=== PATIENT | female | born 1935 | race Caucasian/White ===

== ENCOUNTER 2018-03-09 09:31 | Inpatient (IN) | payer OTHER ==
[~2018-03-09] VITALS: Ht 152.4 cm; Wt 59.0 kg
[~2018-03-09 09:31] MED LIST: CARDIZEM LA300 MG; NEURONTIN300 MG; OMEPRAZOLE40 MG; TRAMADOL HCL-AP1 TAB PO
[2018-03-28] MEDS ORDERED: SYNTHROID50 MCG PO (11:19)
[2018-04-03] MEDS ORDERED: OXYC1TAB9 PO (14:02)
== END 2018-04-03 15:39 | disposition home or self-care (01) | DRG 331 ==
LOC: O/R 03-31 09:33 → SURH 03-31 09:33
PROVIDERS: Surgery
PROC: 0WQF4ZZ Repair Abdominal Wall, Percutaneous Endoscopic Approach (ICD-10-PCS; 2018-03-31)
PROC: 0DTF4ZZ Resection of Right Large Intestine, Percutaneous Endoscopic Approach (ICD-10-PCS; principal; 2018-03-31 20:30)
PROC: 07TC4ZZ Resection of Pelvis Lymphatic, Percutaneous Endoscopic Approach (ICD-10-PCS; 2018-03-31 20:30)
DX: C18.3 Malignant neoplasm of hepatic flexure (principal); R59.0 Localized enlarged lymph nodes; K43.2 Incisional hernia without obstruction or gangrene; I10 Essential (primary) hypertension; D63.0 Anemia in neoplastic disease; D51.3 Other dietary vitamin B12 deficiency anemia

== ENCOUNTER 2018-08-17 10:15 | Outpatient (CLI) | payer OTHER ==
[~2018-08-17 10:15] MED LIST changes: +OXYC1TAB9 PO; +SYNTHROID50 MCG PO
== END 2018-08-17 10:34 | disposition home or self-care (01) ==
LOC: LAB 10:15
DX: Z80.0 Family history of malignant neoplasm of digestive organs (principal); C18.5 Malignant neoplasm of splenic flexure; D50.0 Iron deficiency anemia secondary to blood loss (chronic); C85.17 Unspecified B-cell lymphoma, spleen; D51.3 Other dietary vitamin B12 deficiency anemia; D51.8 Other vitamin B12 deficiency anemias; K75.89 Other specified inflammatory liver diseases; I10 Essential (primary) hypertension; M15.0 Primary generalized (osteo)arthritis; D51.1 Vitamin B12 deficiency anemia due to selective vitamin B12 malabsorption with proteinuria; E03.8 Other specified hypothyroidism